=== PATIENT | female | born 1985 | race Caucasian/White ===

== ENCOUNTER 2023-10-18 14:28 | Emergency (ER) | payer SELFPAY ==
[~2023-10-18] VITALS: Ht 167.6 cm; Wt 106.6 kg
[2023-10-18] MEDS ORDERED: MEDROL DOSEPAK4 MG PO (16:10)
[2023-10-18] MEDS ORDERED: Dexamethasone Sodium Phospha 20 MG/5 ML VIAL IM ONE (16:10)
[2023-10-18] MEDS ORDERED: diphenhydrAMINE hydrochloride 50 MG/ML VIAL IM ONE (16:10)
[2023-10-18] MEDS ORDERED: CLINDAMYCIN HC300 MG PO (16:10)
== END 2023-10-18 16:27 | disposition home or self-care (01) ==
LOC: ED 14:28
DX: K04.7 Periapical abscess without sinus (principal); T36.0X5A Adverse effect of penicillins, initial encounter; Y92.89 Other specified places as the place of occurrence of the external cause

== ENCOUNTER 2024-04-15 14:46 | Emergency (ER) | payer SELFPAY ==
[~2024-04-15] VITALS: Ht 167.6 cm; Wt 114.8 kg
[~2024-04-15 14:46] MED LIST: CLINDAMYCIN HC300 MG PO; MEDROL DOSEPAK4 MG PO
[2024-04-15] MEDS ORDERED: Lidocaine Hydrochloride 2% 10 ML AMP SC ONE (15:25)
[2024-04-15] MEDS ORDERED: CEPHALEXIN500 M1 PO (15:30)
[2024-04-15] MEDS ORDERED: Bacitracin Zinc 14 GM TUBE T ONE (15:35)
== END 2024-04-15 16:08 | disposition home or self-care (01) ==
LOC: ED 14:46
DX: S61.212A Laceration without foreign body of right middle finger without damage to nail, initial encounter (principal); W26.0XXA Contact with knife, initial encounter; Y93.89 Activity, other specified; Y92.89 Other specified places as the place of occurrence of the external cause; Y99.8 Other external cause status